=== PATIENT | male | born 1955 | race African-American/Black ===

== ENCOUNTER 2018-12-16 19:21 | Emergency (ER) | payer MEDICARE ==
[~2018-12-16] VITALS: Ht 175.3 cm; Wt 120.2 kg
[2018-12-16 20:53] LABS: BASOPHIL % 0.3 % (0-2); PLATELET COUNT 186 x10^3mcL (130-400); RED CELL DISTRIBUTION WIDTH 13.2 % (11.5-14.5)
[2018-12-16 21:01] LABS: CALCIUM 8.5 mg/dL (8.5-10.1); CARBON DIOXIDE 29.3 mmol/L (21-32); CHLORIDE SERUM 103 mmol/L (98-107); CREATININE SERUM 1.5 mg/dL (0.7-1.3); GFR1 50 mL/min; GLUCOSE SERUM 167 mg/dL (74-106); POTASSIUM SERUM 3.8 mmol/L (3.5-5.1); SODIUM SERUM 140 mmol/L (136-145)
[2018-12-16 21:12] LABS: ALBUMIN 3.8 g/dL (3.4-5.0); ALKALINE PHOSPHATASE 90 U/L (46-116); ALT/SGPT 21 U/L (16-63); AST/SGOT 22 U/L (15-37); BILIRUBIN TOTAL 0.29 mg/dL (0.20-1.00); CHOLESTEROL 115 mg/dL (<200); HDL CHOLESTEROL 33 mg/dL (40-60); LIPASE 132 IU/L (73-393); MAGNESIUM 1.7 mg/dL (1.8-2.4); T4(THYROXINE) 5.5 ug/dL (4.7-13.3); TOTAL PROTEIN, SERUM 8.1 g/dL (6.4-8.2)
[2018-12-16 21:30] LABS: microscopic required? YES; urine erythrocyte NEGATIVE (NEGATIVE)
[2018-12-16 21:39] LABS: AMPHETAMINE QUAL UR NONE DETECTED (See below)
[2018-12-16 22:23] VITALS: BP 146/69
== END 2018-12-16 22:30 | disposition home or self-care (01) ==
LOC: ED 19:21
PROVIDERS: Emergency Medicine
DX: E11.649 Type 2 diabetes mellitus with hypoglycemia without coma (principal); R56.9 Unspecified convulsions; M21.371 Foot drop, right foot; L80 Vitiligo; Z86.73 Personal history of transient ischemic attack (TIA), and cerebral infarction without residual deficits; Z88.8 Allergy status to other drugs, medicaments and biological substances
CPT/HCPCS: 36415; 82962; G0480; J1610; J3490; Q0092